=== PATIENT | male | born 1955 | race African-American/Black ===

== ENCOUNTER 2025-08-08 05:24 | Inpatient (IN) | payer SELFPAY ==
[~2025-08-08] VITALS: Ht 167.6 cm; Wt 54.9 kg
[2025-08-08] VITALS (66 sets, daily range): BP systolic 98–161; BP diastolic 52–130; PULSE 86–132; RESP 11–28; TEMP 36.4–36.5; O2SAT 95–100
[2025-08-08 06:16] LABS: BASOPHILS % 1.0 % (0.0-2.0); EOSINOPHILS % 1.0 % (0.0-5.0); HEMATOCRIT. 44.2 % (42.0-52.0); HEMOGLOBIN. 14.4 g/dL (14.0-18.0); LYMPHOCYTES % 23.2 % (20.0-50.0); MEAN PLATELET VOLUME 8.1 fl (7.4-10.4); MONOCYTES % 7.2 % (2.0-8.0); NEUTROPHILS % 67.6 % (40.0-76.0); PLATELET 324 x1000/uL (130-400); RED BLOOD CELL COUNT 5.16 mill/uL (4.7-6.1); RED CELL DISTRIBUTION WIDTH 15.2 % (11.6-14.6)
[2025-08-08] MEDS: TETANUS, DIPHTHERIA, PERTUSSIS VAC/PF 0.5ML (>10YR OLD) IM ONE (06:20)
[2025-08-08] MEDS ORDERED: AZITHROMYCIN 500MG/250ML 250 ML IV STA ×2 (06:34→06:55)
[2025-08-08 06:38] LABS: CREATININE 1.0 mg/dL (0.6-1.3)
[2025-08-08 06:39] LABS: UREA NITROGEN BLOOD 18 mg/dL (9-23)
[2025-08-08 06:40] LABS: ASPARTATE AMINOTRANSFERASE 34 IU/L (<34); TROPONIN I HIGH SENSITIVITY 32 ng/L (3.0-53)
[2025-08-08 06:41] LABS: BILIRUBIN DIRECT 0.2 mg/dL (<=3.0); BILIRUBIN TOTAL 0.7 mg/dL (0.1-1.0); PROTEIN TOTAL 7.8 g/dL (6.0-8.3)
[2025-08-08] MEDS ORDERED: CEFTRIAXONE 1GM/50ML 50 ML IV ONE (06:45)
[2025-08-08 06:58] LABS: CLARITY URINE CLEAR (CLEAR); COLOR URINE YELLOW (YELLOW); GLUCOSE URINE NEGATIVE (NEGATIVE); KETONES URINE 1+ (NEGATIVE); LEUKOCYTE ESTERASE URINE NEGATIVE (NEGATIVE); NITRITE URINE NEGATIVE (NEGATIVE); OCCULT BLOOD URINE NEGATIVE (NEGATIVE); PH URINE 6.5 (4.5-8.0); PROTEIN URINE 2+ (NEGATIVE); SPECIFIC GRAVITY URINE 1.016 (1.005-1.030); UROBILINOGEN URINE 1.0 E.U./dL (0.2-1.0)
[2025-08-08] MEDS ORDERED: NICARDIPINE 50 MG in SODIUM CHLORIDE 0.9% 230 ML IV STA (07:00)
[2025-08-08] MEDS ORDERED: MANNITOL 20% (20GM/100ML) BAG 500ML PREMIX IV ONE (07:00)
[2025-08-08] MEDS: LEVETIRACETAM 500MG PREMIX 100 ML IV ONE (07:08)
[2025-08-08 07:28] LABS: RBC URINE 0-2 /hpf (0-2); SQUAMOUS EPITHELIAL CELL URINE 1+ /lpf (RARE/1+); WBC URINE 0-2 /hpf (0-2)
[2025-08-08 07:29] LABS: BACTERIA URINE NONE SEEN
[2025-08-08] MEDS: NICARDIPINE 40MG/200ML PREMIX 200 ML IV PRN (07:53)
[2025-08-08] MEDS: MANNITOL 20% 250 ML IV NR ×2 (07:53→10:00)
[2025-08-08] MEDS ORDERED: GUAIFENESIN 200MG/10ML SUGAR FREE UDC PO PRN (08:00)
[2025-08-08] MEDS ORDERED: ONDANSETRON HCL 4MG/2ML INJ IV PRN (08:00)
[2025-08-08] MEDS ORDERED: CLONIDINE 0.1MG TABLET PO PRN (08:00)
[2025-08-08] MEDS ORDERED: IPRATROPIUM/ALBUTEROL 0.5-3(2.5)MG/3ML NEB HHN PRN (08:00)
[2025-08-08] MEDS ORDERED: ACETAMINOPHEN 325MG TABLET PO PRN (08:00)
[2025-08-08] MEDS ORDERED: DEXTROSE 50% WATER 50ML SYRINGE IV PRN (08:00)
[2025-08-08] MEDS ORDERED: LORAZEPAM 0.5MG TABLET PO PRN (08:00)
[2025-08-08] MEDS ORDERED: DOCUSATE SODIUM 100MG CAPSULE PO PRN (08:00)
[2025-08-08 08:11] LABS: TROPONIN I HIGH SENSITIVITY 50 ng/L (3.0-53)
[2025-08-08] MEDS: CEFTRIAXONE 1GM/50ML 50 ML IV NR (09:00)
[2025-08-08] MEDS: AZITHROMYCIN 500MG/250ML 250 ML IV NR (09:00)
[2025-08-08] MEDS: PANTOPRAZOLE SODIUM 40 MG/VIAL IV SCH (09:23)
[2025-08-08] MEDS ORDERED: MANNITOL 20% (20GM/100ML) BAG 500ML PREMIX IV NR (10:00)
[2025-08-08] MEDS: BLOOD SUGAR DIAGNOSTIC STRIP TEST SCH (13:40)
[2025-08-08] MEDS: PIPERACILLIN/TAZO 3.375G/50ML 50 ML IV SCH (15:17)
[2025-08-08] MEDS: NICARDIPINE 50 MG in SODIUM CHLORIDE 0.9% 230 ML IV PRN (16:32)
[2025-08-08 17:34] LABS: INR 1.1
[2025-08-08 17:42] LABS: TRIGLYCERIDE 72.0 mg/dL (0-150)
[2025-08-08 17:43] LABS: LDL CHOLESTEROL 86.0 mg/dL (5-100)
[2025-08-08 17:47] LABS: T4 FREE 1.41 ng/dL (0.89-1.76)
[2025-08-08] MEDS: LEVETIRACETAM 500MG PREMIX 100 ML IV SCH (21:01)
[2025-08-09] VITALS (93 sets, daily range): BP systolic 108–192; BP diastolic 64–128; PULSE 65–148; RESP 10–37; TEMP 36.4–37.1; O2SAT 96–100
[2025-08-09 07:11] LABS: BASOPHILS % 0.4 % (0.0-2.0); EOSINOPHILS % 0.2 % (0.0-5.0); HEMATOCRIT. 41.3 % (42.0-52.0); HEMOGLOBIN. 13.5 g/dL (14.0-18.0); LYMPHOCYTES % 10.9 % (20.0-50.0); MEAN PLATELET VOLUME 7.9 fl (7.4-10.4); MONOCYTES % 5.9 % (2.0-8.0); NEUTROPHILS % 82.6 % (40.0-76.0); PLATELET 310 x1000/uL (130-400); RED BLOOD CELL COUNT 4.89 mill/uL (4.7-6.1); RED CELL DISTRIBUTION WIDTH 14.9 % (11.6-14.6)
[2025-08-09 07:12] LABS: CREATININE 1.0 mg/dL (0.6-1.3)
[2025-08-09 07:13] LABS: UREA NITROGEN BLOOD 14 mg/dL (9-23)
[2025-08-09] MEDS ORDERED: IPRATROPIUM/ALBUTEROL 0.5-3(2.5)MG/3ML NEB HHN PRN (08:30)
[2025-08-09] MEDS: ACETAMINOPHEN 325MG TABLET PO PRN (13:12)
[2025-08-09] MEDS: NEOMYCIN/BACITRACIN/POLYMYXIN OINT 14GM TOP SCH (21:00)
[2025-08-10] VITALS (8 sets, daily range): BP systolic 107–159; BP diastolic 58–91; PULSE 65–92; RESP 14–22; TEMP 35.9–37.1; O2SAT 96–100
[2025-08-10 08:15] LABS: BASOPHILS % 0.6 % (0.0-2.0); EOSINOPHILS % 0.5 % (0.0-5.0); HEMATOCRIT. 40.4 % (42.0-52.0); HEMOGLOBIN. 13.3 g/dL (14.0-18.0); LYMPHOCYTES % 18.4 % (20.0-50.0); MEAN PLATELET VOLUME 7.9 fl (7.4-10.4); MONOCYTES % 8.1 % (2.0-8.0); NEUTROPHILS % 72.4 % (40.0-76.0); PLATELET 350 x1000/uL (130-400); RED BLOOD CELL COUNT 4.78 mill/uL (4.7-6.1); RED CELL DISTRIBUTION WIDTH 14.8 % (11.6-14.6)
[2025-08-10 08:31] LABS: CREATININE 1.3 mg/dL (0.6-1.3); UREA NITROGEN BLOOD 27 mg/dL (9-23)
[2025-08-11] VITALS: BP 133/83; PULSE 68; RESP 21; TEMP 36.2; O2SAT 97
[2025-08-11 04:00] VITALS: BP 138/85; PULSE 73; RESP 18; TEMP 36.2; O2SAT 98
[2025-08-11 08:00] VITALS: BP 145/95; PULSE 75; RESP 19; TEMP 36.4; O2SAT 98
[2025-08-11] MEDS: FAMOTIDINE 20MG/2ML VIAL IV SCH (09:21)
[2025-08-11] MEDS ORDERED: KEPP500 MT (10:21)
[2025-08-11 10:37] VITALS: BP 145/95; PULSE 75; RESP 18; TEMP 97.5
[2025-08-11 12:00] VITALS: BP 131/86; PULSE 76; RESP 18; TEMP 36.5; O2SAT 98
== END 2025-08-11 16:12 | disposition home or self-care (01) | DRG 55 ==
LOC: ER 05:24 → EDBEDREQTM 06:39 → EDBEDREQ 06:39 → EDBEDREQTM 07:08 → EDBEDREQSVC 07:08 → 7WST 07:57 → MICUNO 08:52 → 8WST 08-10 00:29
PROVIDERS: ADMIT Internal Medicine; ATTEND Internal Medicine
PROC: 0HQ1XZZ Repair Face Skin, External Approach (ICD-10-PCS; principal; 2025-08-08)
DX: S06.5XAA Traumatic subdural hemorrhage with loss of consciousness status unknown, initial encounter (principal); J69.0 Pneumonitis due to inhalation of food and vomit; G93.40 Encephalopathy, unspecified; I16.0 Hypertensive urgency; F03.90 Unspecified dementia, unspecified severity, without behavioral disturbance, psychotic disturbance, mood disturbance, and anxiety; G90.89 Other disorders of autonomic nervous system; S01.111A Laceration without foreign body of right eyelid and periocular area, initial encounter; N40.0 Benign prostatic hyperplasia without lower urinary tract symptoms; I10 Essential (primary) hypertension; W18.39XA Other fall on same level, initial encounter; Y93.89 Activity, other specified; Y92.89 Other specified places as the place of occurrence of the external cause; Y99.8 Other external cause status; Z91.148 Patient's other noncompliance with medication regimen for other reason
CPT/HCPCS: 12013; 36415; 71045; 73522; 80048; 80061; 80076; 81003; 82550; 82962; 83036; 84439; 84443; 84484; 85025; 90471; 90715; 93005; 93880; 96365; 97162; 97166; 99291; A4606; J0456; J0696; J1308; J1953; J2470; J2543; J3490; J7050